=== PATIENT | female | born 1995 | race Hispanic/Latino ===

== ENCOUNTER 2023-01-08 21:21 | Emergency (ER) | payer MEDICAID ==
[~2023-01-08] VITALS: Ht 162.6 cm; Wt 64.9 kg
[2023-01-08 21:24] VITALS: BP 120/78
== END 2023-01-08 23:21 | disposition home or self-care (01) ==
LOC: EDH 21:21
DX: O90.0 Disruption of cesarean delivery wound (principal)
CPT/HCPCS: 99281